=== PATIENT | female | born 1940 | race Caucasian/White ===

== ENCOUNTER → 2020-12-10 07:58 | Outpatient (BNVA) | payer MEDICARE, BC, SELFPAY | PROVIDERS: Family Provider Physician Assistant Medical; PCP Physician Assistant Medical; Visit Provider Urology | DX: N30.01 Acute cystitis with hematuria (principal) | CPT/HCPCS: 81003 ==

== ENCOUNTER → 2021-01-05 08:58 | Outpatient (BNVA) | payer MEDICARE, BC, SELFPAY | PROVIDERS: Family Provider Physician Assistant Medical; PCP Physician Assistant Medical; Visit Provider Urology | DX: N39.0 Urinary tract infection, site not specified (principal) | CPT/HCPCS: 81003 ==

== ENCOUNTER → 2021-06-22 07:58 | Outpatient (BNVA) | payer MEDICARE, BC, SELFPAY | PROVIDERS: Family Provider Physician Assistant Medical; PCP Physician Assistant Medical; Visit Provider Nurse Practitioner Family | DX: I25.118 Atherosclerotic heart disease of native coronary artery with other forms of angina pectoris (principal); N39.0 Urinary tract infection, site not specified; E78.2 Mixed hyperlipidemia; R35.1 Nocturia; I10 Essential (primary) hypertension; R39.11 Hesitancy of micturition; R06.02 Shortness of breath; J44.9 Chronic obstructive pulmonary disease, unspecified; Z87.891 Personal history of nicotine dependence | CPT/HCPCS: 81003; 99213; 99214 ==

== ENCOUNTER → 2021-10-26 16:19 | Outpatient (BNVA) | payer MEDICARE, BC, SELFPAY | PROVIDERS: Family Provider Physician Assistant Medical; PCP Physician Assistant Medical; Visit Provider Nurse Practitioner Family | DX: N39.0 Urinary tract infection, site not specified (principal); R39.11 Hesitancy of micturition | CPT/HCPCS: 81003; 99213 ==

== ENCOUNTER 2021-11-19 11:51 | Outpatient (CLI) | payer MEDICARE, BC, SELFPAY ==
[2021-11-19 13:13] LABS: Anion Gap 15.8 (5-19); Blood Urea Nitrogen 17 mg/dL (8-23); Calcium 9.2 mg/dL (8.5-10.5); Carbon Dioxide 23 mmol/L (22-29); Chloride 100 mmol/L (98-107); Glucose 135 mg/dL (65-115); NT Pro B Type Natriuretic Pept 88 pg/mL (0-450); Osmolality Calculated 284 mOsm/kg (285-295); Potassium 3.8 mmol/L (3.5-5.1); Sodium 135 mmol/L (136-145)
== END 2021-11-19 11:52 | disposition home or self-care (01) ==
LOC: LAB 11:54
PROVIDERS: PCP Family Medicine; Visit Provider Nurse Practitioner Family
DX: I25.118 Atherosclerotic heart disease of native coronary artery with other forms of angina pectoris (principal); R06.02 Shortness of breath; I10 Essential (primary) hypertension; Z95.1 Presence of aortocoronary bypass graft; Z87.891 Personal history of nicotine dependence
CPT/HCPCS: 80048; 83880; 99214

== ENCOUNTER 2021-12-29 09:36 | Outpatient (CLI) | payer MEDICARE, BC, SELFPAY ==
--- NOTE | 2021-12-29 10:00 | USCV_ITS ---
Kim Spivey Age: 81 Gender: F : 1940 Exam Date: 12/29/2021 10:00 Ordering Phys: Adamaris Sun Technologist: Berny Stoner [place] [facility] [place]: worsening dyspnea on exertion BP: 142 / 78 HR: 45 Rhythm: Sinus Technical Quality: Adequate MEASUREMENTS (Male / Female) Normal Values 2D ECHO LV Diastolic Diameter PLAX 4.6 cm 4.2 - 5.9 / 3.9 - 5.3 cm LV Systolic Diameter PLAX 3.5 cm IVS Diastolic Thickness 1.2 cm 0.6 - 1.0 / 0.6 - 0.9 cm IVS Systolic Thickness 1.6 cm LVPW Diastolic Thickness 1.0 cm 0.6 - 1.0 / 0.6 - 0.9 cm LVPW Systolic Thickness 1.1 cm LVOT Diameter 2.0 cm LV Ejection Fraction 2D Teich 48.5 % LV Ejection Fraction MOD 2C 53.2 % LV Ejection Fraction 2C AL 52.6 % LA Diameter 4.1 cm LA Width 3.5 cm LA Height 3.9 cm RA Width 3.2 cm RA Height 3.9 cm Aorta at Sinotubular Diameter 2.7 cm IVC Diameter 1.7 cm M-MODE Aortic Annulus Diameter 3.7 cm LA Ao Ratio MM 1.0 DOPPLER AV Peak Velocity 122.0 cm/s LVOT Peak Velocity 71.0 cm/s AV Area Cont Eq vti 1.8 cm squared AV Area Cont Eq pk 1.9 cm squared MV Peak Velocity 89.0 cm/s MV Area PHT 3.5 cm squared Mitral E to A Ratio 0.7 MV E' Velocity 27.5 cm/s Mitral E to MV E' Ratio 5.9 Mitral E to LV E' Lateral Ratio 5.2 Mitral E to LV E' Septal Ratio 6.8 TR Peak Velocity 279.0 cm/s TR Peak Gradient 31.1 mmHg TR Mean Velocity 200.9 cm/s TR Mean Gradient 18.1 mmHg TR Velocity Time Integral 75.3 cm Right Atrial Pressure 3.0 mmHg Pulmonary Artery Systolic Pressu 34.1 mmHg PV Peak Velocity 74.0 cm/s RV Acceleration Time 0.1 s RV Ejection Time 0.3 s RV AcT/ET 0.2 FINDINGS Left Ventricle Normal LV size with borderline low ejection fraction of 53%. Mild diffuse hypokinesia of the left ventricle Right Ventricle The right ventricle is normal in size and function. Right Atrium The right atrium is normal in size. Left Atrium Mildly increased left atrial size. Mitral Valve Moderate mitral annular calcification. Mild mitral valve regurgitation. Aortic Valve Thickened aortic valve. Mild aortic valve regurgitation. Tricuspid Valve Trace tricuspid valve regurgitation. Pulmonic Valve Pulmonic valve not well visualized. Pericardium Normal pericardium without effusion. Aorta Normal aortic annulus size. IVC Normal inferior vena cava. CONCLUSIONS Normal LV size with borderline low ejection fraction of 53%. Mild diffuse hypokinesia of the left ventricle. Mildly increased left atrial size. The right ventricle is normal in size and function. Moderate mitral annular calcification. Mild mitral valve regurgitation. Thickened aortic valve. Mild aortic valve regurgitation. Trace tricuspid valve regurgitation. Estimated pulmonary artery peak systolic pressure 34 mmHg There is no pericardial effusion. There are no intracardiac masses. Compared to the study from 11/30/2018, the ejection fraction has decreased from 67% to 53% Dr Lena Ordonez MD FAC (Electronically Signed) Final Date: 31 December 2021 09:45 S
== END 2021-12-29 09:37 | disposition home or self-care (01) ==
LOC: RAD 09:37
PROVIDERS: PCP Family Medicine; Visit Provider Nurse Practitioner Family
DX: I25.118 Atherosclerotic heart disease of native coronary artery with other forms of angina pectoris (principal); R06.02 Shortness of breath; I08.3 Combined rheumatic disorders of mitral, aortic and tricuspid valves
CPT/HCPCS: 93306

== ENCOUNTER → 2022-05-24 10:21 | Outpatient (BNVA) | payer MEDICARE, BC, SELFPAY | PROVIDERS: PCP Family Medicine; Visit Provider Internal Medicine Cardiovascular Disease | DX: I25.118 Atherosclerotic heart disease of native coronary artery with other forms of angina pectoris (principal); E78.2 Mixed hyperlipidemia; I10 Essential (primary) hypertension; J44.9 Chronic obstructive pulmonary disease, unspecified; Z87.891 Personal history of nicotine dependence | CPT/HCPCS: 99214 ==

== ENCOUNTER 2022-05-31 06:27 | Outpatient (CLI) | payer MEDICARE, BC, SELFPAY ==
[2022-05-31 06:39] VITALS: BMI 28.1
--- NOTE | 2022-05-31 06:40 | ECG_ITS ---
[facility] Test Date: 2022-05-31 Pat Name: Kim Spivey Department: Room: Gender: Female Wood Model Builder: Stephanie Wolf : 1940 Requested By: Lena Ordonez Order Number: [id number] Mckenzie MD: Lena Ordonez M.D. Interpretive Statements NAME OF STUDY: LEXISCAN SESTAMIBI STRESS TEST INDICATION: Shortness of Breath, PROCEDURE: At the baseline, the EKG revealed sinus bradycardia with a rate of 51 bpm. Diffuse T wave inversions in lead V1 to V6, II, III and aVF. Left axis deviation. Nonspecific IVCD. Minimal voltage criteria for LVH. The baseline heart was 51 bpm with a blood pressue of 126/71 mm of Hg Lexiscan was infused over a period of 20 seconds. A total of 0.4 milligrams of Lexiscan was infused. The stress phase was continued for a total of 5 minutes. Heart rate at the end of the stress phase was 48 bpm with a blood pressure 114/67 mm of Hg. The EKG at the peak infusion revealed no significant changes. Sestamibi was injected 20 seconds after the Lexiscan infusion. Heart rate at the end of the recovery phase was 59 bpm with a blood pressure of 108/72 mm of Hg. CONCLUSION: 1. No significant EKG changes with the LexiScan infusion 2. No LexiScan induced chest pain or cardiac arrhythmia 3. Normal blood pressure and heart rate response 4. Sestamibi/sestamibi perfusion scan pending; see separate report. Electronically Signed On 06-06-2022 17:15:32 CDT by Lena Ordonez M.D. [id number]
--- NOTE | 2022-05-31 06:42 | NMCV_ITS ---
NM francois perf SPECT r/s* [id number] Kim Spivey Age: 81 Gender: F : 1940 Exam Date: 05/31/2022 06:42 Ordering Phys: Lena Ordonez MD ([email or web address]) Technologist: OLAF Stevenson Exam Location: [facility] Indications: SHORTNESS OF BREATH STRESS TEST Please see separate stress test report in [facility] for full findings IMAGE PROTOCOL Rest/Stress 1 Lexiscan Day Radiopharmaceutical Dose (mCi) Administration Site Administered by Rest: Tc-99m 10.8 IV OLAF Rogers Sestamibi Stress:Tc-99m 32.7 IV OLAF Rogers Sestamibi Rest: 31-May-2022 60 Discovery 630 Stress: 31-May-2022 30 Discovery 630 0.4mg Lexiscan. Images obtained in supine and prone position. SPECT RESULTS Technical Quality: Excellent Raw Data Analysis: Normal Image Corrections: No attenuation or motion correction applied Summed Stress Score: 0 Summed Rest Score: 2 Summed Difference Score: 0 PERFUSION FINDINGS A small area of decreased tracer uptake was noted in the apical lateral region with no significant reversibility. FUNCTIONAL RESULTS (calculated via Gated SPECT) Stress Image LV EF (%): 53 Stress EDV (mL):143 TID: 1.21 Stress ESV (mL):67 FUNCTIONAL FINDINGS: Segmental wall motion analysis revealed mild diffuse hypokinesia of the LV apex IMPRESSIONS 1. Myocardial perfusion imaging revealing a small area of persistent decreased tracer uptake in the apical lateral region, suggestive of myocardial scarring versus attenuation artifact. 2. Normal LV ejection fraction of 53%. 3. LV wall motion analysis revealed a mild diffuse hypokinesia of the LV apex. 4. Mildly dilated LV cavity 5. Elevated transischemic dilatation ratio, may assess endocardial ischemia. Positive predictive value of this finding is limited. Clinical correlation is recommended. No similar previous studies are available for comparison Dr Lena Ordonez MD FAC (Electronically Signed) Final Date: 31 May 2022 20:42 S
[2022-05-31] MEDS: regadenoson 0.4 Mg/5 ml Syringe IVP (08:35)
[2022-05-31 08:45] VITALS: BP 108/72; PULSE 67
== END 2022-05-31 06:28 | disposition home or self-care (01) ==
LOC: CDL 06:31
PROVIDERS: PCP Family Medicine; Visit Provider Internal Medicine Cardiovascular Disease
DX: R06.02 Shortness of breath (principal); R09.89 Other specified symptoms and signs involving the circulatory and respiratory systems
CPT/HCPCS: 36415; 78452; 93017; 96374; A9500; J2785

== ENCOUNTER → 2022-06-29 09:51 | Outpatient (BNVA) | payer MEDICARE, BC, SELFPAY | PROVIDERS: PCP Family Medicine; Visit Provider Urology | DX: N39.0 Urinary tract infection, site not specified (principal); R39.11 Hesitancy of micturition; R33.9 Retention of urine, unspecified | CPT/HCPCS: 52000; 99213 ==

== ENCOUNTER → 2022-07-29 08:30 | Outpatient (BNVA) | payer MEDICARE, BC, SELFPAY | PROVIDERS: PCP Family Medicine; Visit Provider Urology | DX: N39.0 Urinary tract infection, site not specified (principal) | CPT/HCPCS: 51798; 81003; 99213 ==

== ENCOUNTER 2022-10-05 06:00 | Outpatient (RCR) | payer MEDICARE, BC, SELFPAY | END 2022-10-14 23:59 | disposition home or self-care (01) | LOC: SPT 06:00 | PROVIDERS: Visit Provider Family Medicine | DX: M86.9 Osteomyelitis, unspecified (principal); M53.3 Sacrococcygeal disorders, not elsewhere classified | CPT/HCPCS: 97110; 97161; 97530 ==

== ENCOUNTER 2022-10-15 06:00 | Outpatient (RCR) | payer MEDICARE, BC, SELFPAY | END 2022-11-13 23:59 | disposition home or self-care (01) | LOC: SPT 06:00 | PROVIDERS: Visit Provider Family Medicine | DX: M86.9 Osteomyelitis, unspecified (principal); M53.3 Sacrococcygeal disorders, not elsewhere classified | CPT/HCPCS: 97110; 97530 ==

== ENCOUNTER 2022-11-14 06:00 | Outpatient (RCR) | payer MEDICARE, BC, SELFPAY | END 2022-12-14 23:59 | disposition home or self-care (01) | LOC: SPT 06:00 | PROVIDERS: Visit Provider Family Medicine | DX: M86.9 Osteomyelitis, unspecified (principal) | CPT/HCPCS: 97110; 97530 ==

== ENCOUNTER → 2022-12-14 13:51 | Outpatient (BNVA) | payer MEDICARE, BC, SELFPAY | PROVIDERS: Visit Provider Nurse Practitioner Family | DX: I25.118 Atherosclerotic heart disease of native coronary artery with other forms of angina pectoris (principal); I10 Essential (primary) hypertension; Z87.891 Personal history of nicotine dependence; Z95.1 Presence of aortocoronary bypass graft | CPT/HCPCS: 99214 ==

== ENCOUNTER → 2023-01-04 08:53 | Outpatient (BNVA) | payer MEDICARE, BC, SELFPAY | PROVIDERS: Visit Provider Dermatology | DX: D48.5 Neoplasm of uncertain behavior of skin (principal); L82.1 Other seborrheic keratosis; L57.0 Actinic keratosis; L57.8 Other skin changes due to chronic exposure to nonionizing radiation; L81.4 Other melanin hyperpigmentation | CPT/HCPCS: 11102; 17000; 99203 ==

== ENCOUNTER → 2023-06-22 11:38 | Outpatient (BNVA) | payer MEDICARE, BC, SELFPAY | PROVIDERS: Visit Provider Internal Medicine Cardiovascular Disease | DX: R06.02 Shortness of breath (principal); I25.118 Atherosclerotic heart disease of native coronary artery with other forms of angina pectoris; E78.2 Mixed hyperlipidemia; I10 Essential (primary) hypertension; Z87.891 Personal history of nicotine dependence; I44.0 Atrioventricular block, first degree; I45.9 Conduction disorder, unspecified | CPT/HCPCS: 36415; 80048; 83880; 93005; 99214 ==

== ENCOUNTER 2023-07-05 11:41 | Outpatient (CLI) | payer MEDICARE, BC, SELFPAY ==
--- NOTE | 2023-07-05 12:15 | USCV_ITS ---
Patric Kim Age: 82 Gender: F : 1940 Exam Date: 07/05/2023 12:18 Ordering Phys: Lena Ordonez MD ([email or web address]) Technologist: [place]am [place] [facility] [place]ication: sob cp BP: 138 / 80 HR: 66 Rhythm: Sinus Technical Quality: Adequate MEASUREMENTS (Male / Female) Normal Values 2D ECHO LV Diastolic Diameter PLAX 4.7 cm 4.2 - 5.9 / 3.9 - 5.3 cm IVS Diastolic Thickness 0.9 cm 0.6 - 1.0 / 0.6 - 0.9 cm IVS Systolic Thickness 1.6 cm LVPW Diastolic Thickness 1.2 cm 0.6 - 1.0 / 0.6 - 0.9 cm LVPW Systolic Thickness 1.6 cm LVOT Diameter 2.0 cm LV Ejection Fraction 2D Teich 68.6 % LV Ejection Fraction MOD 2C 60.4 % LV Ejection Fraction 2C AL 57.2 % LA Diameter 3.0 cm RA Systolic Volume 4C AL 36.9 ml RA Systolic Volume 4C MOD 32.2 ml LA Sys Volume AL 43.1 cm cubed LA Sys Volume Index AL 21.1 cm cubed/m squared Aorta at Sinotubular Diameter 3.0 cm IVC Diameter 2.1 cm M-MODE LA Ao Ratio MM 1.0 AV Cusp Separation MM 2.5 cm DOPPLER AV Peak Velocity 114.0 cm/s LVOT Peak Velocity 68.0 cm/s AV Area Cont Eq vti 2.0 cm squared AV Area Cont Eq pk 1.9 cm squared MV Peak Velocity 75.0 cm/s MV Area PHT 4.0 cm squared Mitral E to A Ratio 0.7 TV Peak Velocity 162.5 cm/s TR Peak Velocity 214.0 cm/s TR Peak Gradient 18.3 mmHg TV Peak E Velocity 72.0 cm/s Right Atrial Pressure 3.0 mmHg Pulmonary Artery Systolic Pressu 21.3 mmHg PV Peak Velocity 82.0 cm/s FINDINGS Left Ventricle Normal left ventricular size and systolic function, EF 59%. Mild concentric left ventricular hypertrophy. Hypokinetic basal inferior wall segment Right Ventricle The right ventricle is normal in size and function. Right Atrium The right atrium is normal in size. Left Atrium The left atrium is normal in size. Mitral Valve No gross abnormalities noted Aortic Valve Thickened aortic valve. Trace to mild aortic valve regurgitation. Tricuspid Valve Trace tricuspid valve regurgitation. Pulmonic Valve Pulmonic valve not well visualized. Pericardium Normal pericardium without effusion. Aorta Normal ascending aorta dimension. IVC Normal inferior vena cava. CONCLUSIONS Normal left ventricular size and systolic function, EF 59%. Mild concentric left ventricular hypertrophy. Hypokinetic basal inferior wall segment. Thickened aortic valve. Trace to mild aortic valve regurgitation. Trace tricuspid valve regurgitation. Estimated pulmonary artery peak systolic pressure 21 mmHg There is no pericardial effusion. There are no intracardiac masses. Compared to study from 12/29/2021, there LV ejection fraction appears to have improved from 53% to 59% Dr Lena Ordonez MD FACC (Electronically Signed) Final Date: 08 Jul 2023 09:23 S
== END 2023-07-05 11:42 | disposition home or self-care (01) ==
LOC: RAD 11:42
PROVIDERS: PCP Registered Nurse; Visit Provider Internal Medicine Cardiovascular Disease
DX: R06.09 Other forms of dyspnea (principal); I51.89 Other ill-defined heart diseases; I35.2 Nonrheumatic aortic (valve) stenosis with insufficiency
CPT/HCPCS: 93306

== ENCOUNTER → 2023-09-26 13:52 | Outpatient (BNVA) | payer MEDICARE, BC, SELFPAY | PROVIDERS: PCP Registered Nurse; Visit Provider Internal Medicine Cardiovascular Disease | DX: R06.02 Shortness of breath (principal); I25.118 Atherosclerotic heart disease of native coronary artery with other forms of angina pectoris; I10 Essential (primary) hypertension; E78.5 Hyperlipidemia, unspecified; Z87.891 Personal history of nicotine dependence | CPT/HCPCS: 99214 ==

== ENCOUNTER → 2023-10-12 08:46 | Outpatient (BNVA) | payer MEDICARE, BC, SELFPAY | PROVIDERS: PCP Registered Nurse; Visit Provider Internal Medicine Cardiovascular Disease | DX: I25.118 Atherosclerotic heart disease of native coronary artery with other forms of angina pectoris (principal) | CPT/HCPCS: 80048; 85025; 85610 ==

== ENCOUNTER 2023-10-18 07:15 | Outpatient (CLI) | payer MEDICARE, BC, SELFPAY ==
[2023-10-18] VITALS (9 sets, daily range): BP systolic 100–139; BP diastolic 57–63; PULSE 48–56; RESP 15–16; TEMP 36.6; O2SAT 91–94; BMI 29.4
[2023-10-18] MEDS: aspirin 325 mg Tablet PO (07:30)
[2023-10-18] MEDS: diphenhydrAMINE 50 mg Capsule PO (07:30)
--- NOTE | 2023-10-18 07:30 | XACV_ITS ---
Exam Room: 2 Ht: 170 cm Wt: 85 kg BSA: 2.03 m2 Gender: Female : 1940 Any Known Allergies: Other Exam Priority: Routine Procedure(s): Procedure Description: Diagnostic procedure Procedure Description: PCI procedure Procedure Description: Left Heart Catheterization Procedure Description: Left ventriculography Procedure Description: Venous Graft Catheterization Procedure Description: Drug Eluting Coronary Stent Procedure Description: PTCA Procedure Description: Miscellaneous Procedure Description: Angio-Seal Procedure Description: ACT Procedure Description: Coronary Angiography Nestor WAGNER; Diagnostic Cath Status: Elective Diagnostic Findings * Left Main has no disease. * Proximal Left Anterior Descending: total occlusion, ANDREIA: 0 flow. * Mid Circumflex: obstructive 80% stenosis, ANDREIA: 3 flow. * Posterior Descending Right: minimal 30% stenosis, ANDREIA: 3 flow. * First Obtuse Marginal Branch Segment: significant 80% stenosis, ANDREIA: 3 flow. * Coronary angiography shows right dominance. PCI Status: Elective PCI Indication: NSTE - ACS Interventional Findings * Mid Circumflex: 70% stenosis treated with a AB TREK 2.50X12 RX BALLOON. 0% residual stenosis, ANDREIA: 3 flow. * First Obtuse Marginal Branch Segment: 80% stenosis treated with a AB TREK 2.50X12 RX BALLOON, LEWIS Hayden TOÑO 2.5X12 NAZANIN, and LEWIS TAN EUPHORA RX 3.29K09II BALLOON. 20% residual stenosis, ANDREIA: 3 flow. Conclusions 1. There is total occlusion coronary artery disease with three vessel disease. 2. Patient has prior CABG. 3. Normal left ventricular systolic function. Ejection fraction of 60%. 4. Mid Circumflex was treated with a Balloon. 5. First Obtuse Marginal Branch Segment was treated with a Balloon, Drug Eluting Stent, and Balloon. 6. PCI to mid circumflex to obtuse marginal 1 and jailing the groove circumflex which was then recrossed and postdilated through the stent struts. Stent was then postdilated with noncompliant balloon. Excellent angiographic result with ANDREIA-3 flow was noted at end of the case. Recommendations * Continue current medical management and risk factor modification. Interventional RX Recommendation: PCI w/o planned CABG Diagnostic RX Recommendation: PCI w/o planned CABG Ventriculography Ejection Fraction: 60.0 % Pressures Phase:Rest AO : 107 / 48 ( 69 ) @ 12:35:00 PM 84 / 41 ( 56 ) @ 12:42:00 PM 89 / 29 ( 56 ) @ 12:56:00 PM 117 / 49 ( 73 ) @ 1:01:00 PM 108 / 53 ( 77 ) @ 1:23:00 PM 126 / 54 ( 83 ) @ 1:27:00 PM 136 / 58 ( 87 ) @ 1:30:00 PM LV : 105 / -13 / 4 @ 12:55:00 PM 108 / -9 / 9 @ 12:56:00 PM Clinical Evaluation EBL: 5mL-10mL Procedural Details Procedure Consent Obtained. Pre-Procedure Time Out. Identified patient by full name and date of as verbalized by the patient/guarantor. Does the consent match the physician's order: Yes. Accurate & Complete Informed Consent: Yes. Inpatient/Outpatient History & Physical on Chart: Yes. If H&P is completed, is and addenduem needed: No; If yes, is the addendum complete: N/A. Visualize and Verify Site with Patient/Guarantor: N/A. Relevant Radiology Images available: Yes. Pre-op teaching completed and patient verbalized understanding. The risks, benefits, and alternatives of sedation and/or procedure were discussed by physician. The patient agrees to continue. Procedure started. Current Diagnosis : Chest Pain. [facility] Clinical Fraility Score: 3: Managing Well. 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 Chest Pain Symptom Assessment: Atypical Angina. Correct patient, site and procedure confirmed by cath team. Current diagnosis: Chest Pain. PERRLA. Strong, equal hand conductor orchestra bilaterally. Lungs clear x 5 lobes. IV Site on Arrival: 20 gauge in the right anticubital. IV Fluids: 0.9% NaCl at KVO. 0 mL infused prior to optical laboratory technician. Pre Procedural Pulses: bilateral dorsalis pedis was 1+. Pre Procedural Pulses: bilateral posterior tibial was 3+. Pre Procedural Pulses: bilateral radial was 3+. Oxygen started at 2liters/min via nasal canula. bilateral groins was prepped with chloroprep then draped in the usual sterile fashion. Physician arrived. Baseline sample Acquired. HR: 66 BPM. Physician scrubbed in. Immediate Pre-Procedure Time Out. Correct Patient: Yes; Correct Procedure: Yes; Correct Site: Yes; Correct Patient Position: Yes; Correct Supplies: Yes; Dried Flammable Prep: Yes; Blood Products Available: N/A;. Lidocaine 1% infiltrated to the right groin. Arterial access obtained with micropuncture set. A 5 jamaican JL4 catheter in over wire. Multiple views taken of left coronary artery. Catheter removed over the exchange wire. A 5 jamaican JR4 catheter in over wire. Multiple views taken of right coronary artery. SVG's to Diaganol visualized and patent. Catheter removed over the exchange wire. A 5 jamaican Angled Pig catheter in over wire. EDP Sample taken: LV 105/-14,4; HR: 51 BPM; SpO2: 94%. LV gram performed in NAQVI @ 10 mL/second for a total of 20 mL. EDP Sample taken: LV 108/-10,9; HR: 51 BPM; SpO2: 93%. Pullback taken: LV Off; AO Off; Mean: , Peak to Peak: , SEP: ; HR: 58 BPM; SpO2: 94%. Catheter removed over the exchange wire. 6 jamaican XB 3.5 guide catheter was inserted over the wire. ACT drawn. Results 213 seconds. Therapeutic limits - pre-heparin administration 90-150 seconds and monitoring heparin during a vascular procedure >250 seconds. Runthrough guidewire was advanced through the guide catheter to lesion in the OM. A second runthrough guidewire was advanced through the guide catheter to lesion in the mid Circ. Inflation number : 1 A AB TREK 2.50X12 RX BALLOON was prepped and advanced across the Mid CX , then inflated to 12 ASHA for 0:06 seconds. Inflation number: 2 The AB TREK 2.50X12 RX BALLOON was reinflated across the Mid CX, to 8 ASHA for 0:07 seconds. Balloon out. Results checked. 2.5x12mm Balloon inserted OTW and advanced to the OM. Balloon out. Inflation number : 1 A AB TREK 2.50X12 RX BALLOON was prepped and advanced across the 1st Ob Alise , then inflated to 8 ASHA for 0:14 seconds. Inflation number: 2 The AB TREK 2.50X12 RX BALLOON was reinflated across the 1st Ob Alise, to 8 ASHA for 0:08 seconds. Balloon out. Results checked. Inflation Number : 3 A MDT R TOÑO 2.5X12 NAZANIN -Lot Number# _[id number] EXP: 06/06/2024 was prepped and advanced across the 1st Ob Alise. The stent was deployed at 12 ASHA for 0:20 seconds. Stent balloon out over wire. Wire removed from the CX. Inflation number : 4 A MDT NC EUPHORA RX [id number] BALLOON was prepped and advanced across the 1st Ob Alise , then inflated to 10 ASHA for 0:16 seconds. Inflation number: 5 The MDT NC EUPHORA RX [id number] BALLOON was reinflated across the 1st Ob Alise, to 12 ASHA for 0:11 seconds. Balloon out. ACT drawn. Results 350 seconds. Therapeutic limits - pre-heparin administration 90-150 seconds and monitoring heparin during a vascular procedure >250 seconds. Results checked. Wire out. Guide catheter out. A Right femoral angiogram was performed to determine safe placement of closure device. Lidocaine 1% infiltrated to the right groin. A Angio-Seal VIP ([facility]) was successful obtaining hemostatsis at the Right Femoral artery insertion site. Post Procedure: Pulses reassessed and unchanged. PERRLA. Strong, equal hand conductor orchestra bilaterally. No VTE prophylaxis required. Medication's Wasted: Nitro = 49.8 mcg. Total IV fluids: 300 mL. Post-op diagnosis: Stent to OM. Complications: None. Estimated blood loss: 5mL-10mL. Responsiveness - Normal response to verbal stimuli; alert and oriented, PERRLA. Airway - Unaffected, no intervention required; spontaneous ventilation. Circulation: W/N/L, pulses unchanged. Nausea/Vomiting: No. Procedure completed. Vital chart was stopped. Patient transferred by stretcher to CPRU. Access Site Site: Right Femoral artery Sheath Size: 6 Fr Hemostasis Method: Angio-Seal VIP ([facility]) Hemostasis Success: Successful Procedure Medications Start: 11:22 AM Stop: 11:22 AM Medication: Versed Amount: 1 mg Route: I.V. Start: 11:22 AM Stop: 11:22 AM Medication: Fentanyl Amount: 50 mcg Route: I.V. Start: 11:35 AM Stop: 11:35 AM Medication: Versed Amount: 1 mg Route: I.V. Start: 11:35 AM Stop: 11:35 AM Medication: Fentanyl Amount: 50 mcg Route: I.V. Start: 12:00 PM Stop: 12:00 PM Medication: Plavix Amount: 600 mg Route: P.O. Start: 11:51 AM Stop: 11:51 AM Medication: 0.9% Saline Amount: 250 ml Route: I.V. bolus Start: 11:52 AM Stop: 11:52 AM Medication: Heparin Amount: 7000 units Route: I.V. Start: 12:07 PM Stop: 12:07 PM Medication: Heparin Amount: 4000 units Route: I.V. Start: 12:11 PM Stop: 12:11 PM Medication: Versed Amount: 1 mg Route: I.V. Start: 12:11 PM Stop: 12:11 PM Medication: Fentanyl Amount: 50 mcg Route: I.V. Start: 12:30 PM Stop: 12:30 PM Medication: Nitrogylcerin Amount: 200 mcg Route: I.C. Start: 12:35 PM Stop: 12:35 PM Medication: Versed Amount: 1 mg Route: I.V. Start: 12:35 PM Stop: 12:35 PM Medication: Fentanyl Amount: 50 mcg Route: I.V. I, the attending physician, have reviewed and verified all procedure medications. Yes, all medications given per verbal order History/Risk Factors Hypertension: Yes Dyslipidemia: Yes Peripheral Arterial Disease (PAD): No Myocardial Infarction (ID): No Obesity: No Renal Disease: No Tobacco Use: Former Prior Interventions PCI: No CABG: Yes Valve Surgery: No Report Signatures Finalized by Anurag Baez MD on 11/02/2023 10:33 PM
--- NOTE | 2023-10-18 10:25 | W.PM.OPSUD ---
Surgery/Procedure H&P Update DATE OF PROCEDURE: October 18, 2023 DATE H&P PERFORMED: 09/26/23 PREOP DIAGNOSIS: Angina equavalant , shortness of breath PRIMARY INDICATION FOR PROCEDURE: Angina equivalant Shortness of breath h/o CABG PLANNED PROCEDURE: Operation Date: 10/18/23 08:30 Proposed Procedures p Cardiac Catheterization - [facility] w/wo LV &Coronaries(Left) - Anurag Baez MD Indication : Angina equivalant PATIENT REASSESSED PRIOR TO SEDATION, WITH NO CHANGE NOTED: Yes PHYSICAL EXAM: alert, oriented x 3, clear to auscultation bilaterally, regular rate & rhythm and operative site marked AIRWAY EVAL/ANESTHESIA PLAN: normal airway, see other exam findings, ASA III, Local Anesthesia, Risks, benefits & alternatives of sedation and/or procedure discussed and Patient agrees to continue as planned ADDITIONAL INFORMATION: Mallampati 2
--- NOTE | 2023-10-18 12:45 | SUR.EXTENDED ---
Received the patient back from the biology laboratory assistant via bed s/p PCI of the CX and OM. Patient drowsy but awakens easily to voice. A & 0 x 3. diamond polisher placed and vital signs obtained. Right Femoral access site s/p Angioseal closure. Groin soft with no bleeding or hematoma noted. Palpable PT and DP pulses. No other assessment changes noted from pre cath assessment. Family at bedside. No concerns voiced at this time.
--- NOTE | 2023-10-18 13:18 | SUR.EXTENDED ---
Patient transferred via bed to ICU 3. Report was fiven to MIRANDA Winslow by Anders Mendiola RN in person.
[2023-10-18] MEDS: sodium chloride 0.9% 1,000 ML 100 ML IV ×2 (13:51→21:38)
[2023-10-18] MEDS: famotidine 20 mg Tablet PO (18:24)
[2023-10-18] MEDS: temazepam 15 mg Capsule PO (21:39)
[2023-10-18] MEDS: atorvastatin 40 mg Tablet PO (21:39)
[2023-10-19] VITALS (7 sets, daily range): BP systolic 126–153; BP diastolic 62–70; PULSE 54–66; RESP 18–22; TEMP 36.1; O2SAT 94
[2023-10-19 04:39] LABS: Basophils % 0.4 %; Eosinophils # 0.1 10^3/uL (0.0-0.8); Eosinophils % 2.7 %; Hematocrit 33.8 % (36-47); Lymphocytes # 0.7 10^3/uL (0.8-4.8); Lymphocytes % 15.6 %; Mean Corpuscular HGB Conc 33.4 g/dL (30-55); Mean Corpuscular Hemoglobin 30.7 pg (27-33); Mean Corpuscular Volume 91.8 fl (85-98); Mean Platelet Volume 9.3 fL (7.4-10.4); Monocytes # 0.6 10^3/uL (0.2-0.9); Monocytes % 12.4 %; Neutrophils # 3.24 10^3/uL (1.8-7.7); Neutrophils % 68.5 %; Nucleated Red Blood Cells % 0 %; Platelet Count 188 10^3/cmm (157-399); Red Blood Count 3.68 10^6/uL (3.85-5.65); Red Cell Distribution Width 13.1 % (12.1-15.1); White Blood Count 4.74 10^3/uL (3.29-11.43)
[2023-10-19 05:06] LABS: Blood Urea Nitrogen 16 mg/dL (8-23); Calcium 8.3 mg/dL (8.5-10.5); Carbon Dioxide 21 mmol/L (22-29); Chloride 108 mmol/L (98-107); Glucose 86 mg/dL (65-115); Osmolality Calculated 294 mOsm/kg (285-295); Sodium 142 mmol/L (136-145)
[2023-10-19] MEDS: clopidogrel 75 mg Tablet PO (08:35)
[2023-10-19] MEDS: sodium chloride 0.9% 1,000 ML 100 ML IV (08:37)
--- NOTE | 2023-10-19 12:49 | PM.DCS ---
Discharge Providers Date of Discharge: October 19, 2023 Attending Provider at Admission: Anurag Baez Attending Provider at Discharge: Anurag Baez MD Primary Care Provider: Lottie Sprague Reason for Visit Reason for Visit: I20.0 Brief History: 83-year-old female for worsening of angina history of coronary artery bypass surgery admitted and underwent left heart catheterization noted to have significant OM1 and mid circumflex bifurcating disease treated with balloon angioplasty and drug-eluting stent placement with excellent angiographic result. Right groin hemostasis was achieved with Angio-Seal. There was no overnight event. Patient is mobile and moving around without any problem. Advised to take dual antiplatelet therapy in the form of clopidogrel and aspirin for at least 1 year. She will be discharged we will follow her up in the cardiology clinic within 10 days with cardiology nurse practitioner and with me in 8 weeks. Patient is encouraged to call us back if there is any problem. Hospital Course Hospital Course As above Physical Exam Const: COMMON NORMALS: alert Resp: COMMON NORMALS: clear to auscultation bilaterally AUSCULTATION: clear to auscultation bilaterally Neuro: SENSORIUM/ORIENTATION: Yes alert Discharge Data Studies Completed and Pending Pending at discharge Category Date Time Status DATABASE MARKETING MANAGER request for service Routine Exams 10/18/23 07:30 Taken Laboratory Results WBC 4.74 10^3/uL (3.29-11.43) 10/19/23 04:10 RBC 3.68 10^6/uL (3.85-5.65) L 10/19/23 04:10 Hgb 11.30 g/dL (11.27-16.99) 10/19/23 04:10 Hct 33.8 % (36-47) L 10/19/23 04:10 MCV 91.8 fl (85-98) 10/19/23 04:10 MCH 30.7 pg (27-33) 10/19/23 04:10 MCHC 33.4 g/dL (30-55) 10/19/23 04:10 RDW 13.1 % (12.1-15.1) 10/19/23 04:10 Plt Count 188 10^3/cmm (157-399) 10/19/23 04:10 MPV 9.3 fL (7.4-10.4) 10/19/23 04:10 Neut % (Auto) 68.5 % 10/19/23 04:10 Lymph % (Auto) 15.6 % 10/19/23 04:10 Crowley % (Auto) 12.4 % 10/19/23 04:10 Eos % (Auto) 2.7 % 10/19/23 04:10 Baso % (Auto) 0.4 % 10/19/23 04:10 Neut # (Auto) 3.24 10^3/uL (1.8-7.7) 10/19/23 04:10 Lymph # (Auto) 0.7 10^3/uL (0.8-4.8) L 10/19/23 04:10 Crowley # (Auto) 0.6 10^3/uL (0.2-0.9) 10/19/23 04:10 Eos # (Auto) 0.1 10^3/uL (0.0-0.8) 10/19/23 04:10 Baso # (Auto) 0.0 10^3/uL (0.0-0.1) 10/19/23 04:10 Nucleated RBC % (auto) 0 % 10/19/23 04:10 Nucleated RBCs # 0.0 /100WBC 10/19/23 04:10 Sodium 142 mmol/L (136-145) 10/19/23 04:10 Potassium 4.0 mmol/L (3.5-5.1) 10/19/23 04:10 Chloride 108 mmol/L (98-107) H 10/19/23 04:10 Carbon Dioxide 21 mmol/L (22-29) L 10/19/23 04:10 Anion Gap 17.0 (5-19) 10/19/23 04:10 BUN 16 mg/dL (8-23) 10/19/23 04:10 Creatinine 0.7 mg/dL (0.5-0.9) 10/19/23 04:10 GFR Calculation Not Reportable 10/19/23 04:10 Glucose 86 mg/dL (65-115) 10/19/23 04:10 Calculated Osmolality 294 mOsm/kg (285-295) 10/19/23 04:10 Calcium 8.3 mg/dL (8.5-10.5) L 10/19/23 04:10 Vitals Last Vital Signs Temp 97.0 F L 10/19/23 07:38 Pulse 66 09/04/24 10:21 Resp 19 H 10/19/23 06:00 BP 126/65 10/19/23 06:00 Pulse Ox 94 10/19/23 10:21 O2 Del Method Room Air 10/19/23 10:21 Discharge Plan Discharge Prescriptions: New aspirin 81 mg tablet,chewable 81 mg PO DAILY Qty: 90 4RF pantoprazole [Protonix] 40 mg tablet,delayed release (DR/EC) 40 mg PO DAILY Qty: 90 5RF Continued clopidogrel 75 mg tablet See Rx Instructions .ROUTE .COMPLEX Qty: 90 3RF Dose Instruction: TAKE 1 TABLET BY MOUTH DAILY Rx Instructions: TAKE 1 TABLET BY MOUTH DAILY Discontinued omeprazole 40 mg capsule,delayed release(DR/EC) 40 mg PO DAILY No Action budesonide-formoterol [Symbicort] 80-4.5 mcg/actuation HFA aerosol inhaler 2 puff INHALATION BID losartan 100 mg tablet 100 mg PO DAILY levothyroxine 150 mcg tablet 150 mcg PO DAILY azelastine 137 mcg (0.1 %) aerosol,spray 1 spray intranasal BID propranolol 160 mg capsule,extended release 24 hr 160 mg PO DAILY fluticasone furoate 100 mcg/actuation blister with device 1 inh inhalation DAILY prevagen 1 cap PO DAILY nitroglycerin [Nitrostat] 0.4 mg tablet, sublingual 0.4 mg SUBLINGUAL Q5M PRN (Reason: chest pain) Qty: 30 3RF Rx Instructions: do not exceed 3 doses per episode amlodipine 10 mg tablet 10 mg PO DAILY 90 Days Qty: 90 3RF methenamine hippurate 1 gram tablet 1 g PO BID Qty: 60 12RF Rx Instructions: 1 pill twice a day with 1 g vitamin C each dose tamsulosin 0.4 mg capsule 0.4 mg PO QDAY Qty: 30 12RF ezetimibe [Zetia] 10 mg tablet 10 mg PO DAILY Qty: 30 1RF isosorbide mononitrate 30 mg tablet extended release 24 hr 30 mg PO DAILY Qty: 30 0RF furosemide 20 mg tablet 20 mg PO DAILY Qty: 30 0RF potassium chloride 8 mEq capsule, extended release 8 meq PO DAILY Qty: 30 0RF Diet: Cardiac Activity: Increase activity as tolerated Patient Instructions: Coronary Angioplasty (DC) Activity Restrictions/Additional Instructions: Follow-up with cardiology nurse practitioner Ms. Adamaris Sun within 10 days Follow-up with Dr. Baez in 8 weeks Discharge Attestations Time Spent in Discharge Care*: greater than 30 min Quality Metrics Clinical Quality Measures [ No reported AMI, CVA or VTE this stay] Coding Level of Care Code Acute Code for Chg Fwd Time Spent (min) 30
== END 2023-10-19 14:13 | disposition home or self-care (01) ==
LOC: CCL 07:18 → ICU 10-19 12:49
PROVIDERS: PCP Registered Nurse; Visit Provider Internal Medicine Cardiovascular Disease
DX: I25.10 Atherosclerotic heart disease of native coronary artery without angina pectoris (principal); I25.82 Chronic total occlusion of coronary artery; Z95.1 Presence of aortocoronary bypass graft; I10 Essential (primary) hypertension; E78.5 Hyperlipidemia, unspecified; Z87.891 Personal history of nicotine dependence
CPT/HCPCS: 36415; 80048; 85025; 85347; 92920; 93459; 96374; 99152; 99153; C1725; C1760; C1769; C1874; C1887; C1894; C9600; G0269; J1644; J2250; J3010; J3490; J7030; Q0163; Q9967

== ENCOUNTER → 2023-10-25 13:32 | Outpatient (BNVA) | payer MEDICARE, BC, SELFPAY | PROVIDERS: PCP Registered Nurse; Visit Provider Nurse Practitioner Family | DX: I25.10 Atherosclerotic heart disease of native coronary artery without angina pectoris (principal); I10 Essential (primary) hypertension | CPT/HCPCS: 36415; 80048; 99214 ==

== ENCOUNTER → 2024-01-03 14:03 | Outpatient (BNVA) | payer MEDICARE, BC, SELFPAY | PROVIDERS: PCP Registered Nurse; Visit Provider Internal Medicine Cardiovascular Disease | DX: I25.10 Atherosclerotic heart disease of native coronary artery without angina pectoris (principal); I11.0 Hypertensive heart disease with heart failure; I50.30 Unspecified diastolic (congestive) heart failure; J81.1 Chronic pulmonary edema; E78.5 Hyperlipidemia, unspecified | CPT/HCPCS: 99214 ==

== ENCOUNTER → 2024-06-06 08:52 | Outpatient (BNVA) | payer MEDICARE, BC, SELFPAY | PROVIDERS: PCP Registered Nurse; Visit Provider Nurse Practitioner Family | DX: I25.10 Atherosclerotic heart disease of native coronary artery without angina pectoris (principal); E78.5 Hyperlipidemia, unspecified; I10 Essential (primary) hypertension; J43.9 Emphysema, unspecified; R06.00 Dyspnea, unspecified; R00.1 Bradycardia, unspecified; Z95.1 Presence of aortocoronary bypass graft; I44.0 Atrioventricular block, first degree; Z87.891 Personal history of nicotine dependence | CPT/HCPCS: 36415; 80048; 83880; 85025; 99214 ==

== ENCOUNTER 2024-06-11 05:50 | Outpatient (CLI) | payer MEDICARE, BC, SELFPAY ==
[2024-06-11] VITALS (86 sets, daily range): BP systolic 91–146; BP diastolic 46–126; PULSE 44–54; RESP 12–24; TEMP 36.6–36.8; O2SAT 87–98; BMI 29.2
--- NOTE | 2024-06-11 06:00 | XACV_ITS ---
Exam Room: 2 Ht: 170 cm Wt: 85 kg BSA: 2.03 m2 Gender: Female : 1940 Any Known Allergies: Other Exam Priority: Routine Procedure(s): Procedure Description: Diagnostic procedure Procedure Description: PCI procedure Procedure Description: Right Heart Catheterization Procedure Description: Venous Graft Catheterization Procedure Description: VALADEZ Graft Catheterization Procedure Description: O2 saturation Procedure Description: Drug Eluting Coronary Stent Procedure Description: PTCA Procedure Description: Miscellaneous Procedure Description: Angio-Seal Procedure Description: Coronary Angiography Nestor WAGNER; Diagnostic Cath Status: Elective Diagnostic Findings * Patent saphenous venous graft to mid LAD. * Atretic VALADEZ which was engaged to left arm was not used. * Left Main has no disease. * Right Coronary Artery has no disease. * Proximal Left Anterior Descending: total occlusion, ANDREIA: 0 flow. * Mid Circumflex: severe 90% stenosis, ANDREIA: 3 flow. * Coronary angiography shows right dominance. PCI Indication: NSTE - ACS Interventional Findings * Mid Circumflex: 90% stenosis treated with a AB MINI TREK 2.00X12 RX BALLOON, LEWIS Hadyen TOÑO 2.25X8 NAZANIN, and LEWIS TAN EUPHORA RX 2.00U34HG BALLOON. 0% residual stenosis, ANDREIA: 3 flow. Conclusions 1. There is total occlusion coronary artery disease with two vessel disease. 2. All delacruz are normal. 3. Normal left ventricular systolic function. Ejection fraction of 60%. 4. Mid Circumflex was treated with a Balloon, Drug Eluting Stent, and Balloon. Recommendations * 1-Return to inpatient for close monitoring and routine cath care 2-Risk factor modification for secondary prevention 3-Statin and aspirin 81 mg life-long, if tolerated 4-Patient was pre-loaded with 600 mg of Plavix, continue Plavix 75mg p.o. daily for at least one year. We will assess at the end of one year again to continue if further or not 5-Continue optimal medical management 6-Follow up with Dr. Baez in four weeks and your primary care in 10 days. Diagnostic RX Recommendation: PCI w/o planned CABG Ventriculography Ejection Fraction: 60.0 % Pressures Phase:Rest AO : 108 / 46 ( 69 ) @ 9:23:00 AM 80 / 43 ( 59 ) @ 9:25:00 AM 122 / 51 ( 77 ) @ 9:57:00 AM 127 / 50 ( 77 ) @ 9:57:00 AM 115 / 46 ( 72 ) @ 10:06:00 AM 112 / 45 ( 70 ) @ 10:06:00 AM 96 / 43 ( 62 ) @ 10:10:00 AM LV : 114 / 6 / 19 @ 10:05:00 AM 114 / 3 / 18 @ 10:05:00 AM 121 / -2 / 13 @ 10:06:00 AM 120 / -2 / 14 @ 10:06:00 AM RV : 21 / -1 / 5 @ 9:16:00 AM PA : 21 / 4 ( 12 ) @ 9:14:00 AM 22 / 8 ( 14 ) @ 9:16:00 AM RA : a wave = 8 v wave = 8 mean = 7 @ 9:17:00 AM PCW : a wave = 5 v wave = 6 mean = 4 @ 9:15:00 AM O2 Content Phase:Rest PA : O2 Content O2: 67.2 @ 9:25:00 AM Saturations Phase:Rest AO : 94 @ 9:23:00 AM RV : 65 @ 9:57:00 AM PA : 67 @ 9:25:00 AM Cardiac Output Phase:Rest Raquel : 3 @ 9:35:28 AM Raquel Cardiac Index: 2 @ :35:28 AM Flow Phase:Rest Qp : 3 @ 9:35:28 AM Qs : 3 @ 9:35:28 AM Valves Phase:DefaultPhase AV : 3.0 @ 9:35:28 AM AV Mean Gradient: 5.0 @ 9:35:28 AM AV Flow: 170 @ 9:35:28 AM AV Area: 1.7 @ 9:35:28 AM AV Area Index: 0.87 @ 9:35:28 AM Clinical Evaluation EBL: 5mL-10mL Procedural Details Procedure Consent Obtained. Pre-Procedure Time Out. Identified patient by full name and date of as verbalized by the patient/guarantor. Does the consent match the physician's order: Yes. Accurate & Complete Informed Consent: Yes. Inpatient/Outpatient History & Physical on Chart: Yes. If H&P is completed, is and addenduem needed: No; If yes, is the addendum complete: N/A. Visualize and Verify Site with Patient/Guarantor: N/A. Relevant Radiology Images available: Yes. Pre-op teaching completed and patient verbalized understanding. The risks, benefits, and alternatives of sedation and/or procedure were discussed by physician. The patient agrees to continue. Procedure started. [facility] Clinical Fraility Score: 4: Vulnerable. Pull Over Indications: Worsening Angina. Chest Pain Symptom Assessment: Typical Angina Symptoms. Correct patient, site and procedure confirmed by cath team. Current diagnosis: Chest Pain, Worsening and explained SOB. PERRLA. 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 Lungs clear x 5 lobes. IV Site on Arrival: 20 gauge in the left anticubital. IV Fluids: 0.9% NaCl at KVO. 0 mL infused prior to cathead operator. Pre Procedural Pulses: bilateral radial was 2+. Pre Procedural Pulses: bilateral posterior tibial was Doppled. bilateral groins was prepped with chloroprep then draped in the usual sterile fashion. Baseline sample Acquired. HR: 49 BPM. Physician arrived. Physician scrubbed in. Immediate Pre-Procedure Time Out. Correct Patient: Yes; Correct Procedure: Yes; Correct Site: Yes; Correct Patient Position: Yes; Correct Supplies: Yes; Dried Flammable Prep: Yes; Blood Products Available: N/A;. Lidocaine 1% infiltrated to the right groin. Venous access obtained with a micropuncture set. Lidocaine 1% infiltrated to the right groin. Arterial access obtained with micropuncture set. [place] MON catheter inserted through venous sheath. Oximetry samples were obtained. Normal venous range: 60-85%. Normal arterial range: 95-100%. Pressure measurements obtained. [place] out. A 5 [place] JL4 catheter in over wire. Oxygen started at 3liters/min via nasal canula. Multiple views taken of left coronary artery. Catheter removed over the standard wire. A 5 [place] JR4 catheter in over wire. Multiple views taken of right coronary artery. SVG's to Diaganol visualized and patent. left radial was prepped with chloroprep then draped in the usual sterile fashion. Lidocaine 1% infiltrated to the left radial. Arterial access obtained. A 5 [place] JR4 catheter in over wire. VALADEZ to LAD visualized. Catheter removed over the exchange wire. A 5 [place] Angled Pig catheter in over wire. EDP Sample taken: LV 114/6,19; HR: 47 BPM; SpO2: 96%. EDP Sample taken: LV 114/3,18; HR: 47 BPM; SpO2: 97%. LV gram performed in NAQVI @ 10 mL/second for a total of 30 mL. EDP Sample taken: LV 121/-3,13; HR: 46 BPM; SpO2: 96%. Pullback taken: LV 120/-3,14; AO 115/46(72); Mean: 5mmHg, Peak to Peak: 3mmHg, SEP: 19sec/min; HR: 46 BPM; SpO2: Off%. Catheter removed over the exchange wire. 6 [place] XB 3.5 guide catheter was inserted over the wire. Runthrough guidewire was advanced through the guide catheter to lesion in the mid Circ. Inflation number : 1 A AB MINI TREK 2.00X12 RX BALLOON was prepped and advanced across the Mid CX , then inflated to 8 ASHA for 0:16 seconds. Inflation number: 2 The AB MINI TREK 2.00X12 RX BALLOON was reinflated across the Mid CX, to 18 ASHA for 0:17 seconds. Balloon out. Inflation Number : 3 Genaro Hayden TOÑO 2.25X8 NAZANIN -Lot Number# _[id number] EXP: 11/09/2025 was prepped and advanced across the Mid CX. The stent was deployed at 12 ASHA for 0:18 seconds. Stent balloon out over wire. Inflation number : 4 A LEWIS TAN EUPHORA RX [id number] BALLOON was prepped and advanced across the Mid CX , then inflated to 12 ASHA for 0:15 seconds. Balloon out. Wire out. Results checked. Guide catheter out. ACT drawn. Results 375 seconds. Therapeutic limits - pre-heparin administration 90-150 seconds and monitoring heparin during a vascular procedure >250 seconds. Lidocaine 1% infiltrated to the right groin. A TR Band was successful obtaining hemostatsis at the Right Radial artery insertion site. A Angio-Seal VIP ([place]) was successful obtaining hemostatsis at the Right Femoral artery insertion site. A Suture was successful obtaining hemostatsis at the Right Femoral vein insertion site. Post Procedure: Pulses reassessed and unchanged. PERRLA. 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 No VTE prophylaxis required. Medication's Wasted: Nitro = 49.8 mcg. Medication's Wasted: Other = Fentanyl 50mcg Versed 1 mg. Total IV fluids: 367 mL. Complications: None. Post-op diagnosis: CAD. Estimated blood loss: 5mL-10mL. Responsiveness - Normal response to verbal stimuli; alert and oriented, PERRLA. Airway - Unaffected, no intervention required; spontaneous ventilation. Circulation: W/N/L, pulses unchanged. Nausea/Vomiting: No. Vital chart was stopped. Procedure completed. Patient transferred by stretcher to CPRU. Access Site Site: Right Femoral vein Sheath Size: 6 Fr Hemostasis Method: Suture Hemostasis Success: Successful Site: Right Femoral artery Sheath Size: 6 Fr Hemostasis Method: Angio-Seal VIP ([facility]) Hemostasis Success: Successful Site: Right Radial artery Sheath Size: 6 Fr Hemostasis Method: TR Band Hemostasis Success: Successful Procedure Medications Start: 7:52 AM Stop: 7:52 AM Medication: Versed Amount: 1 mg Route: I.V. Start: 7:54 AM Stop: 7:54 AM Medication: Fentanyl Amount: 12.5 mcg Route: I.V. Start: 8:14 AM Stop: 8:14 AM Medication: Fentanyl Amount: 12.5 mcg Route: I.V. Start: 8:22 AM Stop: 8:22 AM Medication: Versed 1 mg and Fentanyl 25 mcg Route: I.V. Start: 8:49 AM Stop: 8:49 AM Medication: Fentanyl Amount: 25 mcg Route: I.V. Start: 8:57 AM Stop: 8:57 AM Medication: Fentanyl Amount: 25 mcg Route: I.V. Start: 9:06 AM Stop: 9:06 AM Medication: Versed Amount: 1 mg Route: I.V. Start: 9:07 AM Stop: 9:07 AM Medication: Fentanyl Amount: 25 mcg Route: I.V. Start: 9:08 AM Stop: 9:08 AM Medication: 0.9% Saline Amount: 250 ml Route: I.V. bolus Start: 9:08 AM Stop: 9:08 AM Medication: Heparin Amount: 7000 units Route: I.V. Start: 9:28 AM Stop: 9:28 AM Medication: Fentanyl Amount: 25 mcg Route: I.V. Start: 9:28 AM Stop: 9:28 AM Medication: Plavix Amount: 300 mg Route: P.O. I, the attending physician, have reviewed and verified all procedure medications. Yes, all medications given per verbal order History/Risk Factors Hypertension: Yes Dyslipidemia: Yes Peripheral Arterial Disease (PAD): No Myocardial Infarction (AR): No Obesity: No Renal Disease: No Tobacco Use: Former Prior Interventions PCI: Yes CABG: No Valve Surgery: No Date of PCI: 10/18/2023 Report Signatures Finalized by Anurag Baez MD on 06/24/2024 09:50 PM
[2024-06-11] MEDS: diphenhydrAMINE 50 mg Capsule PO (06:31)
[2024-06-11] MEDS: aspirin 325 mg Tablet PO (06:31)
--- NOTE | 2024-06-11 07:47 | W.PM.OPSUD ---
Surgery/Procedure H&P Update DATE OF PROCEDURE: June 11, 2024 DATE H&P PERFORMED: 06/06/24 H&P UPDATE INFORMATION: I have reviewed H&P completed within last 30 days, I have examined patient prior to procedure and No changes to prior documentation PREOP DIAGNOSIS: Unexplained shortness of breath worsening PRIMARY INDICATION FOR PROCEDURE: Patient has prior history of coronary artery disease history of CABG prior stent to circumflex and balloon angioplasty to obtuse marginal, patient had coronary artery bypass surgery in 2004. According to the patient she has worsening of shortness of breath to the extent that it is hindering her quality of life. 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 Her medications were optimized she was diuresed effectively despite of that she cannot move much merely moving around at home make her short of breath. It is the main reason that left and right heart catheterization was suggested by cardiology nurse practitioner thinking of angina equivalent and considering pulmonary hypertension or pre and postcapillary high pressure in the lungs. Patient has been explained all risk-benefit and alternative for the procedure. Patient understand 2% risk of stroke major bleed,. Patient understand 5% risk of major minor bleeding contrast-induced nephropathy urgent emergent vascular and cardiac surgery. She would like to proceed with it. PLANNED PROCEDURE: Operation Date: 06/11/24 07:00 Proposed Procedures p Cardiac Catheterization - RLHC w/wo & Maddison(Bilateral) - Anurag Baez MD PATIENT REASSESSED PRIOR TO SEDATION, WITH NO CHANGE NOTED: Yes AIRWAY EVAL/ANESTHESIA PLAN: ASA II, Risks, benefits & alternatives of sedation and/or procedure discussed and Patient agrees to continue as planned ADDITIONAL INFORMATION: As above please see detailed consent
[2024-06-11 08:33] LABS: Arterial Blood Gas Hematocrit 38.6 % (37-47); Blood Gas Operator Identificat GD; Blood Gas Sample Site Not specified; Blood Gas Sample Type Not specified; Carboxyhemoglobin 1.4 %THgb (0.4-20.1); HGB O2 Sat 91.8 % (95-100); Methemoglobin 0.8 % (0.4-1.5); Total Hemoglobin 12.6 g/dL (12-16)
[2024-06-11 08:35] LABS: Arterial Blood Gas Hematocrit 36.1 % (37-47); Blood Gas Operator Identificat GD; Blood Gas Sample Site Not specified; Carboxyhemoglobin 1.4 %THgb (0.4-20.1); HGB O2 Sat 63.8 % (95-100); Methemoglobin 0.9 % (0.4-1.5); Total Hemoglobin 11.8 g/dL (12-16)
[2024-06-11 08:37] LABS: Arterial Blood Gas Hematocrit 32.7 % (37-47); Blood Gas Operator Identificat GD; Blood Gas Sample Site Not specified; Carboxyhemoglobin 1.4 %THgb (0.4-20.1); HGB O2 Sat 65.6 % (95-100); Methemoglobin 0.9 % (0.4-1.5); Total Hemoglobin 10.7 g/dL (12-16)
[2024-06-11 08:38] LABS: Blood Gas Sample Type Venous
[2024-06-11 08:40] LABS: Arterial Blood Gas Hematocrit 32.4 % (37-47); Blood Gas Operator Identificat GD; Blood Gas Sample Site Not specified; Blood Gas Sample Type Not specified; Carboxyhemoglobin 1.5 %THgb (0.4-20.1); HGB O2 Sat 72.2 % (95-100); Methemoglobin 0.9 % (0.4-1.5); Total Hemoglobin 10.6 g/dL (12-16)
--- NOTE | 2024-06-11 09:50 | PM.PROC ---
Procedure Note: Date of procedure: 06/11/24 Pre-procedure diagnosis: Unexplained shortness of breath/angina equivalent Procedure: Left heart cath/right heart cath Normal right-sided pressure, normal wedge and pulmonary pressures Left heart catheterization: Left main no significant abnormality LAD is known to be occluded in the midsegment LCx patent previously placed obtuse marginal stent., High-grade mid circumflex stenosis. RCA has luminal irregularity without significant stenosis Patent saphenous venous graft to diagonal branch VALADEZ is atretic PCI to mid circumflex with drug-eluting stent postdilated with noncompliant balloon. Excellent angiographic result ANDREIA-3 flow was achieved. Plan: Bedrest for 4 hours, check ACT in couple of hours below 160 pull out the venous sheath. Bedrest 2 hours after pulling out venous sheath. Possible same-day discharge today. Continue aspirin statin beta-la 1-Return to inpatient for close monitoring and routine cath care Follow-up with cardiology nurse practitioner in 1 week. Coding Level of Care Code Acute Code for Ino Fwkorin
[2024-06-11] MEDS: ondansetron 2 mg/ML SDV 2 mL 4 MG IVP ×2 (09:59→21:11)
[2024-06-11] MEDS: morphine 4 mg/mL SDV 1 mL 2 MG IVP (09:59)
[2024-06-11] MEDS: sodium chloride 0.9% 1,000 ML 100 ML IV (10:22)
--- NOTE | 2024-06-11 13:06 | SUR.PHASEI ---
left radial brusing Band deflation began at 1230. 1245 CHECK REVEALED SLIGHT BRUISING AND HEMATOMA FORMATION. 3 ML AIR REPLACED INTO TR BAND AND SIGHT MARKED FOR CHANGE. manual expression of bruise attempte until site noted to be soft/ supple. MD notified who came and inspected the bruising. Plan to admit for observation d/t continued bruising and fear of complications with same day discharge as she lives over 1 hour from home. Discussed with the family. They agree with admit observe status at this time. [place] super notified. Awaiting bed assignment.
--- NOTE | 2024-06-11 13:23 | SUR.PHASEI ---
ACT 195. RESULT TO DR GILLIS. NO REDRAW REQUIRED. PLAN TO PULL SHEATH AT 1430. NOTED.
--- NOTE | 2024-06-11 14:45 | SUR.PHASEI ---
Femoral Venous Sheath Pull Venous Line removed. Manual pressure held at site for 15 minutes. Site is hemostatic and free of hematoma formation at this time. Verbal post cath instuctions went over with the patient/family. They understood well. Informed to call for needs. Will Continue to monitor.
--- NOTE | 2024-06-11 16:42 | PC.NURSE ---
Received patient from farm labor contractor at 1622. Patient had 3 access sites. L radial access, R groin venous and arterial access. TR band removed per nurse at 1315, angioseal on R groin, and sheath pulled from R groin at approximately 1445. Nurse receiving report was told of hematomas and that Dr Baez was aware. Sites assessed and marked.
[2024-06-11] MEDS: acetaminophen 325 mg Tablet 650 MG PO (22:03)
[2024-06-12] VITALS (7 sets, daily range): BP systolic 108–145; BP diastolic 58–72; PULSE 50–56; RESP 18–20; TEMP 36.3–36.9; O2SAT 90–93
--- NOTE | 2024-06-12 01:33 | PC.NURSE ---
2126- Patient sitting on side of bed, hematomas on right wrist and groin outlined. Patient endorses nausea, please se MAR of zofran admin. Patient started endorsing 7/10 back pain radiating to upper back after emesis episode. Per Dr. Baez give zofran 4mg Q4 IV and morphine 2mg IV Q4 hr PRN. Patient refusing morphine at this time but would like tylenol. 2255-Dr. Baez messaged this nurse to check on patient. BP 127/62 HR 54 with complaints of nausea. Also has increase in hematome size and recircled. sandbag placed on patients groin site. Dr. Baez made aware and received ordersto give protonix 40 mg PO once and hold ten minutes moderate pressure. 0134- Dr. Baez rounding on CSU. Per groin site looks fine, continue to monitor.
[2024-06-12 08:23] LABS: Basophils % 0.4 %; Eosinophils # 0.1 10^3/uL (0.0-0.8); Eosinophils % 1.7 %; Hematocrit 38.9 % (36-47); Lymphocytes # 0.9 10^3/uL (0.8-4.8); Mean Corpuscular HGB Conc 33.2 g/dL (30-55); Mean Corpuscular Hemoglobin 30.3 pg (27-33); Mean Corpuscular Volume 91.3 fl (85-98); Mean Platelet Volume 9.6 fL (7.4-10.4); Monocytes # 0.7 10^3/uL (0.2-0.9); Monocytes % 9.3 %; Neutrophils # 5.73 10^3/uL (1.8-7.7); Neutrophils % 76.3 %; Nucleated Red Blood Cells % 0 %; Platelet Count 214 10^3/cmm (157-399); Red Blood Count 4.26 10^6/uL (3.85-5.65); Red Cell Distribution Width 12.6 % (12.1-15.1); White Blood Count 7.51 10^3/uL (3.29-11.43)
[2024-06-12] MEDS: aspirin 81 mg EC Tablet PO (08:29)
[2024-06-12] MEDS: clopidogrel 75 mg Tablet PO (08:29)
[2024-06-12 08:45] LABS: Anion Gap 15.6 (5-19); Blood Urea Nitrogen 12 mg/dL (8-23); Calcium 9.2 mg/dL (8.5-10.5); Carbon Dioxide 23 mmol/L (22-29); Chloride 98 mmol/L (98-107); Creatinine Clr Calc Pharmacy 59.6278; Glucose 113 mg/dL (65-115); Osmolality Calculated 277 mOsm/kg (285-295); Potassium 3.6 mmol/L (3.5-5.1); Sodium 133 mmol/L (136-145)
--- NOTE | 2024-06-12 11:12 | PC.NURSE ---
Patient's discharge is pending her urination after cisneros was removed.
--- NOTE | 2024-06-12 13:49 | P.DS_ITS ---
<Statement entered by Anurag Baez MD - 06/17/24 11:29> Patient was evaluated and cared for in conjunction with an advanced practice practitioner. I personally examined the patient and reviewed the chart and all pertinent data including imaging, telemetry, and laboratory results. I discussed the patient in detail with the advanced practice practitioner. Please see their note for complete H&P testing result and agreed upon plan of care for the patient. 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 Echo on July 05, 2023 indicated left ventricular ejection fraction 59% with mild left ventricular hypertrophy. She continued to experience dyspnea that have progressively worsened over the years that was limiting her ability to walk across the room without being out of breath. Lasix dose was increased to 40 daily with no improvement in symptoms. She had been evaluated with pulmonology as well. She underwent right and left heart cath for evaluation of her progressive shortness of breath Hospital Course Hospital Course She underwent right and left heart cath and this showed normal right-sided pressure, normal wedge and pulmonary pressures Left heart catheterization: Left main no significant abnormality LAD is known to be occluded in the midsegment LCx patent previously placed obtuse marginal stent., High-grade mid circumflex stenosis. RCA has luminal irregularity without significant stenosis Patent saphenous venous graft to diagonal branch VALADEZ is atretic PCI to mid circumflex with drug-eluting stent postdilated with noncompliant balloon. Excellent angiographic result ANDREIA-3 flow was achieved. She did develop a small hematoma to her right groin, but this was stable and improved on discharge. She was discharged home the next day on aspirin and plavix in stable to improved condition. Physical Exam Narrative: General: No apparent distress, healthy appearing, well nourished HENMT: normoceophalic Muskuloskeletal: Full ROM Respiratory: Normal respiratory effort, clear to auscultation bilaterally throughout all lung zeng, no use of accessory muscles Cardio: No JVD, regular rate, regular rhythm, S1 S2 normal, no murmurs, peripheral pulses 2+ radial palpated bilaterally Extremities: Full ROM, normal, normal capillary refill, no cyanosis or edema Neuro: Alert and oriented x4, no focal motor deficits Psych: Affect normal, denies suicidal ideation, mental status grossly normal Skin: right radial access site with mild to moderate amount of bruising w/o hematoma. This was soft and nontender. Right groin with moderate amount of bruising. Hematoma resolved. Area is soft and nontender. 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 Routine Exams 06/11/24 06:00 Taken Laboratory Results WBC 7.51 10^3/uL (3.29-11.43) 06/12/24 08:17 RBC 4.26 10^6/uL (3.85-5.65) 06/12/24 08:17 Hgb 12.90 g/dL (11.27-16.99) 06/12/24 08:17 Hct 38.9 % (36-47) 06/12/24 08:17 MCV 91.3 fl (85-98) 06/12/24 08:17 MCH 30.3 pg (27-33) 06/12/24 08:17 MCHC 33.2 g/dL (30-55) 06/12/24 08:17 RDW 12.6 % (12.1-15.1) 06/12/24 08:17 Plt Count 214 10^3/cmm (157-399) 06/12/24 08:17 MPV 9.6 fL (7.4-10.4) 06/12/24 08:17 Neut % (Auto) 76.3 % 06/12/24 08:17 Lymph % (Auto) 12.0 % 06/12/24 08:17 [place] % (Auto) 9.3 % 06/12/24 08:17 Eos % (Auto) 1.7 % 06/12/24 08:17 Baso % (Auto) 0.4 % 06/12/24 08:17 Neut # (Auto) 5.73 10^3/uL (1.8-7.7) 06/12/24 08:17 Lymph # (Auto) 0.9 10^3/uL (0.8-4.8) 06/12/24 08:17 [place] # (Auto) 0.7 10^3/uL (0.2-0.9) 06/12/24 08:17 Eos # (Auto) 0.1 10^3/uL (0.0-0.8) 06/12/24 08:17 Baso # (Auto) 0.0 10^3/uL (0.0-0.1) 06/12/24 08:17 Nucleated RBC % (auto) 0 % 06/12/24 08:17 Nucleated RBCs # 0.0 /100WBC 06/12/24 08:17 Specimen Type Not specified 06/11/24 08:20 Specimen Type Not specified 06/11/24 08:20 Specimen Type Venous 06/11/24 08:20 Specimen Type Venous 06/11/24 08:20 Sample Site Not specified 06/11/24 08:20 Sample Site Not specified 06/11/24 08:20 Sample Site Not specified 06/11/24 08:20 Sample Site Not specified 06/11/24 08:20 [place] Test N/a 06/11/24 08:20 [place] Test N/a 06/11/24 08:20 [place] Test N/a 06/11/24 08:20 [place] Test N/a 06/11/24 08:20 A-a O2 Gradient Not Reportable 06/11/24 08:20 A-a O2 Gradient Not Reportable 06/11/24 08:20 A-a O2 Gradient Not Reportable 06/11/24 08:20 A-a O2 Gradient Not Reportable 06/11/24 08:20 Hematocrit 32.4 % (37-47) L 06/11/24 08:20 Hematocrit 32.7 % (37-47) L 06/11/24 08:20 Hematocrit 36.1 % (37-47) L 06/11/24 08:20 Hematocrit 38.6 % (37-47) 06/11/24 08:20 Hgb O2 Saturation 63.8 % (95-100) L 06/11/24 08:20 Hgb O2 Saturation 65.6 % (95-100) L 06/11/24 08:20 Hgb O2 Saturation 72.2 % (95-100) L 06/11/24 08:20 Hgb O2 Saturation 91.8 % (95-100) L 06/11/24 08:20 Carboxyhemoglobin 1.4 %THgb (0.4-20.1) 06/11/24 08:20 Carboxyhemoglobin 1.4 %THgb (0.4-20.1) 06/11/24 08:20 Carboxyhemoglobin 1.4 %THgb (0.4-20.1) 06/11/24 08:20 Carboxyhemoglobin 1.5 %THgb (0.4-20.1) 06/11/24 08:20 Methemoglobin 0.8 % (0.4-1.5) 06/11/24 08:20 Methemoglobin 0.9 % (0.4-1.5) 06/11/24 08:20 Methemoglobin 0.9 % (0.4-1.5) 06/11/24 08:20 Methemoglobin 0.9 % (0.4-1.5) 06/11/24 08:20 Total Hemoglobin 10.6 g/dL (12-16) L 06/11/24 08:20 Total Hemoglobin 10.7 g/dL (12-16) L 06/11/24 08:20 Total Hemoglobin 11.8 g/dL (12-16) L 06/11/24 08:20 Total Hemoglobin 12.6 g/dL (12-16) 06/11/24 08:20 O2 Delivery Device Not Reportable 06/11/24 08:20 O2 Delivery Device Not Reportable 06/11/24 08:20 O2 Delivery Device Not Reportable 06/11/24 08:20 O2 Delivery Device Not Reportable 06/11/24 08:20 Manager Wind ID Gd 06/11/24 08:20 Manager Wind ID Gd 06/11/24 08:20 Manager Wind ID Gd 06/11/24 08:20 Manager Wind ID Gd 06/11/24 08:20 Sodium 133 mmol/L (136-145) L 06/12/24 08:17 Potassium 3.6 mmol/L (3.5-5.1) 06/12/24 08:17 Chloride 98 mmol/L (98-107) 06/12/24 08:17 Carbon Dioxide 23 mmol/L (22-29) 06/12/24 08:17 Anion Gap 15.6 (5-19) 06/12/24 08:17 BUN 12 mg/dL (8-23) 06/12/24 08:17 Creatinine 0.7 mg/dL (0.5-0.9) 06/12/24 08:17 GFR Calculation Not Reportable 06/12/24 08:17 Glucose 113 mg/dL (65-115) 06/12/24 08:17 Calculated Osmolality 277 mOsm/kg (285-295) L 06/12/24 08:17 Calcium 9.2 mg/dL (8.5-10.5) 06/12/24 08:17 Procedures Performed Date of procedure: 06/11/24 Pre-procedure diagnosis: Unexplained shortness of breath/angina equivalent Procedure: Left heart cath/right heart cath Normal right-sided pressure, normal wedge and pulmonary pressures Left heart catheterization: Left main no significant abnormality LAD is known to be occluded in the midsegment LCx patent previously placed obtuse marginal stent., High-grade mid circumflex stenosis. RCA has luminal irregularity without significant stenosis Patent saphenous venous graft to diagonal branch VALADEZ is atretic PCI to mid circumflex with drug-eluting stent postdilated with noncompliant balloon. Excellent angiographic result ANDREIA-3 flow was achieved. Vitals Last Vital Signs Temp 97.5 F L 06/12/24 11:36 Pulse 50 L 06/12/24 11:36 Resp 20 H 06/12/24 11:36 BP 145/72 06/12/24 11:36 Pulse Ox 92 06/12/24 11:36 O2 Del Method Room Air 06/12/24 11:36 Discharge Plan Discharge Patient Disposition: Home Prescriptions: New aspirin 81 mg Tablet,Delayed Release (Dr/Ec) 81 mg PO DAILY Qty: 90 0RF clopidogrel 75 mg Tablet 75 mg PO DAILY Qty: 90 0RF Continued losartan 100 mg tablet 100 mg PO DAILY azelastine 137 mcg (0.1 %) aerosol,spray 1 spray intranasal BID levothyroxine 150 mcg tablet 112 mcg PO DAILY prevagen 1 cap PO DAILY nitroglycerin [Nitrostat] 0.4 mg tablet, sublingual 0.4 mg SUBLINGUAL Q5M PRN (Reason: chest pain) Qty: 30 3RF Rx Instructions: do not exceed 3 doses per episode furosemide 40 mg tablet 40 mg PO DAILY Qty: 90 2RF potassium chloride 10 mEq capsule, extended release 20 meq PO DAILY Qty: 180 3RF alendronate 70 mg tablet 70 mg PO DIRECTED Rx Instructions: 70 mg orally weekly omeprazole 40 mg capsule,delayed release(DR/EC) 40 mg PO DAILY triamterene-hydrochlorothiazid 37.5-25 mg tablet 1 tab PO DAILY Trelegy Ellipta 100-62.5-25 mcg blister with device 1 inh inhalation DAILY amlodipine 10 mg tablet 5 mg PO DAILY methenamine hippurate 1 gram tablet 1 g PO BID Qty: 60 12RF Rx Instructions: 1 pill twice a day with 1 g vitamin C each dose tamsulosin 0.4 mg capsule 0.4 mg PO QDAY Qty: 30 12RF Discontinued propranolol 160 mg capsule,extended release 24 hr 160 mg PO DAILY clopidogrel 75 mg tablet 75 mg PO DAILY Rx Instructions: TAKE 1 TABLET BY MOUTH DAILY Discharge Orders: Discharge Order (Routine); Ordered 06/12/24 Ordered By: Laurence Spivey Referrals: Laurence Spivey NP [Nurse Practitioner] - 06/19/24 1:30 pm Lottie Sprague [Primary Care Provider] - 06/14/24 1:00 pm Diet: Cardiac Activity: Increase activity as tolerated and Limit activity as instructed Patient Instructions: Aspirin (By mouth), Clopidogrel (By mouth) (Plavix), Coronary Angioplasty (DC), Heart Healthy Diet (DC), Post Angiogram Home Care Instructions Activity Restrictions/Additional Instructions: Discussed with patient no heavy lifting more than a gallon of milk as well as going up or down steps for 3 days. No driving for 3 days. Monitor for and report signs or symptoms of bleeding. Monitor for and report s/s of infection such as fever 101 or greater, swelling, redness or pain to the groin. Continue dual antiplatelet therapy x1 year. Avoiding betablocker at this time due to bradycardia. Will f/u in the clinic in 1 week for reevaluation of this. Print Language: Divehi Discharge Date/Time: 06/12/24 13:14 Discharge Attestations Time Spent in Discharge Care*: less than 30 min Quality Metrics Clinical Quality Measures [ No reported AMI, CVA or VTE this stay] Coding Level of Care Code Acute Code for Chg Fwd
== END 2024-06-12 13:14 | disposition home or self-care (01) ==
LOC: CCL 08:47 → CSU 06-12 07:36
PROVIDERS: Nurse Practitioner Family; PCP Registered Nurse; Visit Provider Internal Medicine Cardiovascular Disease
DX: I25.119 Atherosclerotic heart disease of native coronary artery with unspecified angina pectoris (principal); I25.82 Chronic total occlusion of coronary artery; I10 Essential (primary) hypertension; E78.5 Hyperlipidemia, unspecified; Z87.891 Personal history of nicotine dependence; K21.9 Gastro-esophageal reflux disease without esophagitis; Z95.1 Presence of aortocoronary bypass graft; R06.02 Shortness of breath; J44.9 Chronic obstructive pulmonary disease, unspecified; E03.9 Hypothyroidism, unspecified; Z82.49 Family history of ischemic heart disease and other diseases of the circulatory system
CPT/HCPCS: 36415; 51702; 80048; 82810; 85025; 85347; 93460; 96374; 96376; 99152; 99153; C1725; C1751; C1760; C1769; C1874; C1887; C1894; C9600; G0269; J1644; J2250; J2270; J2405; J3010; J3490; J7030; J9999; Q0163; Q9967

== ENCOUNTER → 2024-06-19 13:12 | Outpatient (BNVA) | payer MEDICARE, BC, SELFPAY | PROVIDERS: PCP Registered Nurse; Visit Provider Nurse Practitioner Family | DX: R06.02 Shortness of breath (principal); Z09 Encounter for follow-up examination after completed treatment for conditions other than malignant neoplasm; I25.10 Atherosclerotic heart disease of native coronary artery without angina pectoris; E78.5 Hyperlipidemia, unspecified; I10 Essential (primary) hypertension; Z79.01 Long term (current) use of anticoagulants; Z79.82 Long term (current) use of aspirin; Z95.1 Presence of aortocoronary bypass graft; Z87.891 Personal history of nicotine dependence | CPT/HCPCS: 99214 ==

== ENCOUNTER 2024-07-04 09:17 | Outpatient (CLI) | payer MEDICARE, BC, SELFPAY ==
--- NOTE | 2024-07-04 | ECG_ITS ---
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 The perfusion scan will be documented separately. DATA: Baseline heart rate was 48 beats per minute. Baseline blood pressure was 108/64 millimeters of mercury. Target heart rate was 137. Maximum heart rate achieved was 79. which was 57% of the predicted target heart rate. Maximum blood pressure was 132/77 millimeters of mercury. The reason for ending the test was completion of the protocol. The patient did not experience any symptoms. ELECTROCARDIOGRAM: BASELINE: Sinus bradycardia. Normal axis. Artifact noted, interventricular conduction delay EXERCISE: After Lexiscan injection, no ST-T changes suggestive of ischemic noted. No arrhythmia noted. CONCLUSION: Please note due to baseline abnormality of the EKG specificity and sensitivity of the EKG portion of LexiScan MIBI stress test will be low 1. EKG not suggestive of ischemia 2. Lexiscan injection unremarkable. 3. Perfusion scan will be documented separately. Electronically Signed On 07-17-2024 23:12:45 CDT by JOSE GILLIS [email or web address]
[2024-07-04 09:23] VITALS: BMI 29.7
--- NOTE | 2024-07-04 09:23 | NMCV_ITS ---
NM francois perf SPECT r/s* [id number] Kim Spivey Age: 83 Gender: F : 1940 Exam Date: 07/04/2024 10:20 Ordering Phys: Laurence Spivey NP Technologist: OLAF Vargas Exam Location: [facility] Indications: cp STRESS TEST [facility] IMAGE PROTOCOL Rest/Stress 1 Lexiscan Day Radiopharmaceutical Dose (mCi) Administration Site Administered by Rest: Tc-99m 10.8 IV OLAF Vargas Sestamibi Stress:Tc-99m 32.4 IV OLAF Rogers Sestamibi Rest: 04-Jul-2024 60 Discovery 630 Stress: 04-Jul-2024 30 Discovery 630 0.4mg Lexiscan. Supine position only as patient was unable to lay prone. SPECT RESULTS Technical Quality: Good Raw Data Analysis: Normal Image Corrections: No attenuation or motion correction applied Summed Stress Score: 3 Summed Rest Score: 11 Summed Difference Score: 0 PERFUSION FINDINGS There is small to medium sized area of reduced radiotracer uptake seen in apical, inferior and inferolateral delacruz that improves on stress imaging. This likely represents attenuation artifact. Less likely related to medium sized area of prior infarct in these territories. FUNCTIONAL RESULTS (calculated via Gated SPECT) Stress Image LV EF (%): 51 Stress EDV (mL):134 TID: 1.05 Stress ESV (mL):65 FUNCTIONAL FINDINGS: There is normal left ventricular systolic function. IMPRESSIONS 1. Medium sized area of attenuation artifact seen in apical, inferolateral and inferior delacruz. Less likely prior infarct. No evidence of ischemia 2. LV systolic function is normal Getachew Cuenca MD (Electronically Signed) Final Date: 13 Jul 2024 15:32 S
[2024-07-04] MEDS: regadenoson 0.4 Mg/5 ml Syringe IVP (10:39)
[2024-07-04 10:58] VITALS: BP 104/59; PULSE 56
== END 2024-07-04 09:18 | disposition home or self-care (01) ==
LOC: CDL 09:17
PROVIDERS: PCP Registered Nurse; Visit Provider Nurse Practitioner Family
DX: R06.02 Shortness of breath (principal); R93.1 Abnormal findings on diagnostic imaging of heart and coronary circulation
CPT/HCPCS: 36415; 78452; 93017; 96374; A9500; J2785

== ENCOUNTER 2024-07-30 13:03 | Outpatient (CLI) | payer MEDICARE, BC, SELFPAY ==
--- NOTE | 2024-07-30 13:30 | USCV_ITS ---
Kim Spivey Age: 84 Gender: F : 1940 Exam Date: 07/30/2024 13:26 Ordering Phys: Laurence Spivey NP Technologist: SHANIKA [place] [facility] [place]: SoB BP: 110 / 60 HR: 55 Rhythm: Sinus Technical Quality: Adequate MEASUREMENTS (Male / Female) Normal Values 2D ECHO LV Diastolic Diameter PLAX 4.9 cm 4.2 - 5.9 / 3.9 - 5.3 cm IVS Diastolic Thickness 1.0 cm 0.6 - 1.0 / 0.6 - 0.9 cm IVS Systolic Thickness 1.6 cm LVPW Diastolic Thickness 1.1 cm 0.6 - 1.0 / 0.6 - 0.9 cm LVPW Systolic Thickness 1.4 cm LV Ejection Fraction 2D Teich 55.9 % LV Ejection Fraction MOD 4C 50.3 % LV Ejection Fraction MOD 2C 56.9 % LV Ejection Fraction 2C AL 58.8 % RA Systolic Volume 4C AL 26.7 ml RA Systolic Volume 4C MOD 25.2 ml LA Sys Volume AL 34.9 cm cubed LA Sys Volume Index AL 17.1 cm cubed/m squared Aorta at Sinotubular Diameter 3.1 cm M-MODE LA Ao Ratio MM 1.7 AV Cusp Separation MM 1.9 cm DOPPLER AV Peak Velocity 108.0 cm/s LVOT Peak Velocity 67.0 cm/s MV Peak Velocity 87.0 cm/s MV Area PHT 4.3 cm squared Mitral E to A Ratio 0.8 TV Peak Velocity 88.5 cm/s TR Peak Velocity 114.0 cm/s TR Peak Gradient 5.2 mmHg TV Peak E Velocity 66.0 cm/s PV Peak Velocity 68.0 cm/s FINDINGS Left Ventricle Technically limited quality echocardiogram. LV systolic function is normal with EF of 55-60%. Right Ventricle Not well visualized but grossly hypokinetic Right Atrium Normal in size Left Atrium Normal in size Mitral Valve Grossly normal. Mild mitral regurgitation Aortic Valve Aortic valve is thickened. No significant stenosis of regurgitation. Tricuspid Valve Insufficient TR to calculate RVSP. Pulmonic Valve Not well visualized Pericardium Normal Aorta Not well visualized IVC Not well visualized CONCLUSIONS Technically limited quality echocardiogram because of poor ultrasonic windows. LV systolic function is normal with EF 55-60%. Not well visualized but grossly hypokinetic Mild mitral regurgitation Getachew Cuenca MD (Electronically Signed) Final Date: 12 August 2024 15:15 S
== END 2024-07-30 13:04 | disposition home or self-care (01) ==
PROVIDERS: PCP Registered Nurse; Visit Provider Nurse Practitioner Family
DX: R06.02 Shortness of breath (principal); I34.0 Nonrheumatic mitral (valve) insufficiency; I35.8 Other nonrheumatic aortic valve disorders
CPT/HCPCS: 93306

== ENCOUNTER → 2024-08-20 15:17 | Outpatient (BNVA) | payer MEDICARE, BC, SELFPAY | PROVIDERS: PCP Registered Nurse; Visit Provider Internal Medicine Cardiovascular Disease | DX: I25.10 Atherosclerotic heart disease of native coronary artery without angina pectoris (principal); J12.9 Viral pneumonia, unspecified; I10 Essential (primary) hypertension; Z79.02 Long term (current) use of antithrombotics/antiplatelets; Z79.82 Long term (current) use of aspirin; Z95.1 Presence of aortocoronary bypass graft; Z87.891 Personal history of nicotine dependence | CPT/HCPCS: 99214 ==